=== PATIENT | female | born 1990 | race American Indian/Alaskan Native ===

== ENCOUNTER 2017-09-26 18:49 | Emergency (ER) | payer MEDICAID ==
[2017-09-26] MEDS ORDERED: TYLENOL ONE ×2 (19:28→19:44)
[2017-09-26] MEDS ORDERED: NACL 0.9% 500 ML 500 ML IV ONE (19:41)
[2017-09-26] MEDS ORDERED: TYLENOL PO STA (19:41)
[2017-09-26 20:12] LABS: Basophils % (Auto) 0.3 % (0.0-1.8); Eosinophils % (Auto) 0.2 % (0.0-4.3); Hematocrit 42.4 % (30.3-42.9); Hemoglobin 13.5 gm/dl (10.1-14.3); Lymphocytes # (Auto) 1.2 K/mm3 (1.2-5.4); Lymphocytes % (Auto) 8.4 % (13.4-35.0); Mean Corpuscular HGB Conc 32 % (30-34); Mean Corpuscular Hemoglobin 30 pg (28-32); Mean Corpuscular Volume 93 fl (79-97); Monocytes % (Auto) 6.9 % (0.0-7.3); Platelet Count 307 K/mm3 (140-440); Red Blood Count 4.55 M/mm3 (3.65-5.03); Red Cell Distribution Width 14.5 % (13.2-15.2)
[2017-09-26 20:29] LABS: Alanine Aminotransferase 17 units/L (7-56); Albumin 3.8 g/dL (3.9-5); BUN/Creatinine Ratio 11; Blood Urea Nitrogen 8 mg/dL (7-17); Calcium 9.1 mg/dL (8.4-10.2); Hemolysis Index 38
[2017-09-26] MEDS ORDERED: TORADOL IV ONE (20:34)
[2017-09-26] MEDS ORDERED: MORPHINE IV ONE (20:35)
--- NOTE | 2017-09-26 20:39 | Emergency Department Report ---
HPI - General Chief Complaint: Extremity Injury, Lower Time Seen by Provider: 09/26/17 20:22 - HPI HPI: 27-year-old -Turkish female presents to the emergency department with a complaint of a 2 day history of left leg swelling and a 1 day history of very intense left leg pain. The pain goes all the way up the leg towards the groin. She denies any skin color change. Patient presents with a fever and says that she has been feeling slightly feverish. She did not complain of any shortness of breath or any particular cough but when doing the review of systems she says she has an intermittent cough. The patient is from [place] and drove up here for 5 days ago. No history of DVT but says she has had cellulitis before. No sick contacts at home. She has not taken anything for her symptoms prior to presentation. ED Past Medical Hx - Past Medical History Previous Medical History?: Yes Hx Hypertension: Yes Hx Diabetes: Yes Additional medical history: Morbid Obesity - Surgical History Past Surgical History?: Yes Additional Surgical History: X 2. - Social History Smoking Status: Current Every Day Smoker Substance Use Type: None - Medications Home Medications: Home Medications Medication Instructions Recorded Confirmed Last Taken Type HYDROcodone/ACETAMINOPHEN [[place] 1 each PO Q6H PRN #12 tablet 09/27/17 Unknown Rx 5-325 Tablet] Sulfamethoxazole/Trimethoprim 1 each PO BID #14 tablet 09/27/17 Unknown Rx [Bactrim DS TAB] ED Review of Systems ROS: Stated complaint: LEFT LEG PAIN Other details as noted in HPI Constitutional: fever. denies: weakness Eyes: denies: eye pain, eye discharge, vision change ENT: denies: ear pain, throat pain Respiratory: denies: cough, shortness of breath, wheezing Cardiovascular: edema. denies: chest pain, palpitations Gastrointestinal: denies: abdominal pain, nausea, diarrhea Genitourinary: denies: urgency, dysuria, discharge Musculoskeletal: arthralgia, myalgia Skin: denies: rash, lesions Neurological: denies: headache, weakness, paresthesias Physical Exam - Physical Exam Vital Signs: Vital Signs 09/26/17 19:27 Temperature 101.2 F H Pulse Rate 113 H Blood Pressure 122/77 O2 Sat by Pulse 96 Oximetry Physical Exam: GENERAL: The patient is well-developed well-nourished. HENT: Normocephalic. Atraumatic. Patient has moist mucous membranes. EYES: Extraocular motions are intact. Pupils equal reactive to light bilaterally. NECK: Supple. Trachea is midline. CHEST/LUNGS: Clear to auscultation. There is no respiratory distress noted. HEART/CARDIOVASCULAR: Regular. There is mild tachycardia. There is no murmur. ABDOMEN: Abdomen is soft, nontender. Patient has normal bowel sounds. Morbidly obese habitus. SKIN: Skin is warm and dry. There is a small area of erythema to the left distal anterior tib-fib. NEURO: The patient is awake, alert, and oriented. The patient is cooperative. The patient has no focal neurologic deficits. The patient has normal speech. MUSCULOSKELETAL: Patient has tenderness to palpation along the left lower extremity from the ankle up to the groin. No palpable abscess, mass or obvious hernia. 2+ dorsalis pedis pulse to the affected left lower extremity. Cap refill less than 2 seconds. ED Course Vital Signs 09/26/17 19:27 Temperature 101.2 F H Pulse Rate 113 H Blood Pressure 122/77 O2 Sat by Pulse 96 Oximetry ED Medical Decision Making - Lab Data Result diagrams: 09/26/17 19:55 09/26/17 19:55 - EKG Data -: EKG Interpreted by Me EKG shows normal: sinus rhythm, axis, intervals, QRS complexes (low voltage), ST -T waves Rate: tachycardia (108 bpm) - EKG Data When compared to previous EKG there are: previous EKG unavailable Interpretation: other (sinus tachycardia at 108 bpm, low voltage) - Radiology Data Radiology results: image reviewed interpreted by me: X-ray of the left tib-fib and femur do not show any fracture, dislocation or any acute process. Chest x-ray does not show any acute process. There are no pleural effusions, obvious pneumonia and there is no pneumothorax. - Medical Decision Making This patient came in with a complaint of 2 days of left leg swelling and one of pain in that affected leg. There might be a very small area of erythema to the distal portion of the leg that could be cellulitic but I do not believe that is the cause of the generalized leg pain. She presents with a fever. Labs show a leukocytosis of 14,000. Rest of the labs are unremarkable including a negative d-dimer. Chest x-ray does not show any signs of pneumonia or any acute process. Urinalysis does not show a urinary tract infection. Patient was given some pain medication and antibiotics here. Since she just traveled here from [place] a DVT needs to be ruled out. D-dimer was negative but I think it is prudent to still get the venous Doppler ultrasound. I am unable to get that for her this evening but she has been set up to return tomorrow for the venous Doppler ultrasound. If positive, she will be redirected to the emergency department for anticoagulation. If negative, she needs to follow-up with her doctor in [place]. She was sent home with some pain medication and antibiotics. Patient's vitals were improved prior to discharge including resolution of the fever. - Differential Diagnosis cellulitis, venous stasis, myalgia, DVT Critical Care Time: No Critical care attestation.: If time is entered above; I have spent that time in minutes in the direct care of this critically ill patient, excluding procedure time. ED Disposition Clinical Impression: Left leg pain Fever Qualifiers: Fever type: unspecified Qualified Code(s): R50.9 - Fever, unspecified Cellulitis Qualifiers: Site of cellulitis: extremity Site of cellulitis of extremity: lower extremity Laterality: left Qualified Code(s): L03.116 - Cellulitis of left lower limb Disposition: DC- TO HOME OR SELFCARE Is pt being admited?: No Condition: Stable Instructions: Cellulitis (ED), Arthralgia (ED) Additional Instructions: I am sending you up to return tomorrow for a left lower extremity venous Doppler ultrasound to rule out a blood clot. You will be contacted at the number given to us by the polygraph technician. If it is positive, he will be redirected to the emergency department. If negative, you will need to follow up with your primary care physician when you return home to [place]. In the meantime, return to the emergency Department with any worsening of your symptoms or any acute distress. You have been prescribed a medication that is sedating and therefore should not be taken prior to driving, working, and responsible for children and in no way should be mixed with alcohol of any quantity. Prescriptions: HYDROcodone/ACETAMINOPHEN [[place] 5-325 Tablet] 1 each PO Q6H PRN #12 tablet PRN Reason: Pain , Severe (7-10) Sulfamethoxazole/Trimethoprim [Bactrim DS TAB] 1 each PO BID #14 tablet Referrals: PRIMARY CARE, [Referring] - [facility] Time of Disposition: 00:27
[2017-09-26] MEDS ORDERED: NACL 0.9% 1000 ML IV ONE (20:42)
[2017-09-26] MEDS ORDERED: VANCOMYCIN/NS 1 GM/250 ML 1 GM/250 ML BAG IV SCH (21:00)
[2017-09-26] MEDS ORDERED: NACL 0.9% 1000 ML 1,000 ML IV ONE (21:03)
--- NOTE | 2017-09-26 21:09 | XRay Report ---
FINAL REPORT PROCEDURE: XR CHEST 1V AP TECHNIQUE: Chest radiograph anteroposterior view. CPT 68845 HISTORY: possible Sepsis COMPARISON: No prior studies are available for comparison. FINDINGS: Heart: Normal. Mediastinum/Vessels: Normal. Lungs/Pleural space: Normal. Bony thorax: No acute osseous abnormality. Life support devices: None. IMPRESSION: No acute cardiopulmonary abnormality.
[2017-09-26 21:16] LABS: Bilirubin,Urine NEG (Negative); Blood,Urine NEG (Negative); Color,Urine Yellow (Yellow); Mucus,Urine FEW /HPF; Protein,Urine <15 mg/dL mg/dL (Negative); Urobilinogen,Urine < 2.0 mg/dL (<2.0); WBC,Urine < 1.0 /HPF (0.0-6.0)
--- NOTE | 2017-09-26 22:05 | XRay Report ---
FINAL REPORT PROCEDURE: XR FEMUR 2+V LT TECHNIQUE: LEFT femur radiographs, AP and lateral views. HISTORY: thigh and hip pain COMPARISON: No prior studies are available for comparison. FINDINGS: Fracture (s) and/or Dislocation(s): None . Joint space(s): Normal . Soft tissues: Normal . Bone mineralization: Normal . Foreign bodies: None . IMPRESSION: Normal Examination
--- NOTE | 2017-09-26 22:07 | XRay Report ---
FINAL REPORT PROCEDURE: XR TIBIA FIBULA 2V LT TECHNIQUE: LEFT tibia and fibula radiographs, AP and lateral views. CPT 68503 HISTORY: leg pain COMPARISON: No prior studies are available for comparison. FINDINGS: Fracture (s) and/or Dislocation(s): None . Joint space(s): Normal . Soft tissues: Normal . Bone mineralization: Normal . Foreign bodies: None . IMPRESSION: Normal Examination.
[2017-09-27 00:18] VITALS: BP 112/56
[2017-09-27] MEDS ORDERED: PERCOCET 5/325 ONE (00:23)
[2017-09-27] MEDS ORDERED: PERCOCET 5/325 PO ONE (00:23)
== END 2017-09-27 00:40 | disposition home or self-care (01) ==
LOC: ED 18:49
DX: L03.116 Cellulitis of left lower limb (principal); M79.605 Pain in left leg; R50.9 Fever, unspecified; I10 Essential (primary) hypertension; E11.9 Type 2 diabetes mellitus without complications; F17.200 Nicotine dependence, unspecified, uncomplicated
CPT/HCPCS: 36415; 71045; 73552; 73590; 80053; 81001; 82140; 82805; 84703; 85025; 85379; 85610; 87040; 87086; 93005; 93010; 96365; 96375; 99285; J1885; J2270; J3370; J7030

== ENCOUNTER 2017-09-27 15:32 | Outpatient (CLI) | payer MEDICAID ==
--- NOTE | 2017-10-01 14:33 | Vascular Lab Report ---
Left Lower Extremity Venous Duplex Study: Reason for Exam: Pain and swelling of the left lower extremity. Comments on the Right: A limited duplex study was done of the proximal veins of the right lower extremity. All veins visualized are freely compressible without evidence of internal echogenicity. Flow is spontaneous and phasic throughout. No evidence of acute or chronic thrombus is seen in any of the vessels visualized. Comments on the Left: All veins visualized are freely compressible without evidence of internal echogenicity. Flow is spontaneous and phasic throughout. No evidence of acute or chronic thrombus is seen in any of the vessels visualized. Left inguinal adenopathy is noted. Impression: No evidence of acute or chronic deep venous thrombosis in the left lower extremity. Left inguinal adenopathy is noted.
== END 2017-09-27 15:33 | disposition home or self-care (01) ==
LOC: VAS 15:32
PROVIDERS: ATTEND Emergency Medicine
DX: M79.605 Pain in left leg (principal); M79.89 Other specified soft tissue disorders; R59.0 Localized enlarged lymph nodes; I10 Essential (primary) hypertension